=== PATIENT | female | born 1985 | race Caucasian/White ===

== ENCOUNTER 2017-05-02 15:16 | Emergency (ER) | payer SELFPAY ==
[2017-05-02 15:34] VITALS: BP 140/82
[2017-05-02] MEDS ORDERED: DOXYcycline CAP(*) 100 MG PO ONE ×2 (17:50→17:51)
--- NOTE | 2017-05-02 17:55 | ED ---
Skin Complaint - HPI Summary HPI Summary: 32F presents with rash across body, fever, body aches, and headache for two weeks. She denies any photophobia, visual field changes. She believes that she was exposed to a tick two weeks ago. She just moved her from [place] so she does not have a primary. She denies any sinus congestion, abdominal pain, cough. She denies any one else being sick. She has been taking ibuprofen for her fever. She states the ibuprofen helps with the fever but not the headache as much. She states her neck is sore along with the rest of her body but denies any stiffness. She states she feels extremely fatigued. - History of Current Complaint Chief Complaint: EDRashSkinAbscess Time Seen by Provider: 05/02/17 17:42 Stated Complaint: RASH ALL OVER BODY,FEVER 1 WEEK Pain Intensity: 10 - Allergy/Home Medications Allergies/Adverse Reactions: Allergies Allergy/AdvReac Type Severity Reaction Status Date / Time No Known Allergies Allergy Verified 05/02/17 17:54 PMH/Surg Hx/FS Hx/Imm Hx Endocrine/Hematology History: Denies: Hx Anticoagulant Therapy, Hx Diabetes Cardiovascular History: Denies: Hx Hypertension Infectious Disease History: No Infectious Disease History: Denies: Traveled Outside the [place] in Last 30 Days - Family History Known Family History: Negative: Cardiac Disease - Social History Alcohol Use: Occasionally Substance Use Type: Reports: None Smoking Status (MU): Never Smoked Tobacco Review of Systems Positive: Fever Negative: Chest Pain Negative: Shortness Of Breath Negative: Abdominal Pain Positive: Myalgia - body aches Positive: Rash Positive: Headache All Other Systems Reviewed And Are Negative: Yes Physical Exam Triage Information Reviewed: Yes Vital Signs On Initial Exam: Initial Vitals Temp Pulse Resp BP Pulse Ox 99.6 F 88 20 140/82 100 05/02/17 15:31 05/02/17 15:31 05/02/17 15:31 05/02/17 15:31 05/02/17 15:31 Vital Signs Reviewed: Yes Appearance: Positive: Well-Appearing Skin: Positive: Other - erythema migrans across body Head/Face: Positive: Normal Head/Face Inspection Eyes: Positive: Normal, EOMI, LIDA, Conjunctiva Clear ENT: Positive: Normal ENT inspection, Pharynx normal, TMs normal Neck: Positive: Supple, Nontender, No Lymphadenopathy. Negative: Nuchal Rigidity Respiratory/Lung Sounds: Positive: Clear to Auscultation, Breath Sounds Present Cardiovascular: Positive: Normal, RRR Abdomen Description: Positive: Nontender, Soft Bowel Sounds: Positive: Present Neurological: Positive: Sensory/Motor Intact, Alert, Oriented to Person Place, Time, CN Intact II-III Diagnostics - Vital Signs Vital Signs Temp Pulse Resp BP Pulse Ox 05/02/17 16:33 99.6 F 88 16 140/82 98 05/02/17 15:31 99.6 F 88 20 140/82 100 - Laboratory Lab Statement: Any lab studies that have been ordered have been reviewed, and results considered in the medical decision making process. Course/Dx - Course Course Of Treatment: HomerF presents with rash across body, fever, body aches, and headache for two weeks. She denies any photophobia, visual field changes. She believes that she was exposed to a tick two weeks ago. She denies any sinus congestion, abdominal pain, cough. She denies any one else being sick. She states she feels extremely fatigued. On exam has rash bull eye appearance that started started on chest and spread and appears consistent with erythema migrains. no nuchal rigidity. lungs CTA. got lyme titer but will treat as lyme with doxcycline. patient understands and agrees with plan. - Differential Diagnoses - Skin Complaint Differential Diagnoses: Cellulitis, Contact Dermatitis, Systemic Illness, Tick Born Illness - Diagnoses Provider Diagnoses: Lyme disease Discharge - Discharge Plan Condition: Good Disposition: HOME Prescriptions: DOXYcycline CAP(*) [DOXYcycline 100MG CAP(*)] 100 mg PO BID #[id number] cap Patient Education Materials: Lyme Disease (ED) Referrals: [facility] [place] [facility] [Outside] Additional Instructions: Take antibiotic twice a day for 21 days, first dose given in ED Take with food, use sunscreen when go outside Establish care with primary care physician to follow up Return to ED if develop any new or worsening symptoms
== END 2017-05-02 18:25 | disposition home or self-care (01) ==
LOC: ED 15:16
DX: A69.20 Lyme disease, unspecified (principal); R21 Rash and other nonspecific skin eruption; R50.9 Fever, unspecified
CPT/HCPCS: 86617; 86618; 99282; A9270-GY